=== PATIENT | male | born 1960 | race American Indian/Alaskan Native ===

== ENCOUNTER 2020-08-07 11:06 | Outpatient (CLI) | payer OTHER ==
[2020-08-07 11:38] LABS: Hematocrit 46.6 % (35.5-45.6); Hemoglobin 15.6 gm/dl (11.8-15.2); Mean Corpuscular HGB Conc 33 % (32-34); Mean Corpuscular Volume 97 fl (84-94); Platelet Count 139 K/mm3 (140-440); Red Blood Count 4.83 M/mm3 (3.65-5.03)
[2020-08-07 12:05] LABS: Alanine Aminotransferase 51 units/L (7-56); Blood Urea Nitrogen 13 mg/dL (9-20); Calcium 9.2 mg/dL (8.4-10.2); Chol/HDL Ratio 3.79 %; HDL Cholesterol 53 mg/dL (40-59); Hemolysis Index 1; LDL Cholesterol,Direct 130 mg/dL (50-130)
[2020-08-07 12:06] LABS: BUN/Creatinine Ratio 19
--- NOTE | 2020-08-07 13:48 | XRay Report ---
CHEST 2 VIEWS INDICATION: SOB. COMPARISON: None. FINDINGS: Support devices: None. Heart: Within normal limits. Lungs/Pleura: No acute air space or interstitial disease. No significant pleural effusion. IMPRESSION: No acute findings. Signer Name: Samy Tate MD Signed: 08/07/2020 1:44 PM Workstation Name: [id number]
[2020-08-07 14:26] LABS: ABG Base Excess -0.2 mmol/L (-2.0-3.0); ABG HCO3 24.1 mmol/L (20.0-26.0); ABG Methemoglobin 0.5 % (0.0-1.5); ABG Oxygen Saturation 95.7 % (95.0-99.0); ABG PCO2 38.6 mm Hg; ABG PH 7.414 pH Units (7.350-7.450); ABG PO2 73.2 mm Hg (80.0-90.0)
== END 2020-08-07 11:07 | disposition home or self-care (01) ==
LOC: XRAY 11:06
PROVIDERS: ATTEND Internal Medicine
DX: R06.02 Shortness of breath (principal); J30.89 Other allergic rhinitis; Z68.29 Body mass index [BMI] 29.0-29.9, adult
CPT/HCPCS: 36415; 71046; 80053; 80061; 82785; 82803; 84436; 84443; 85027; 86003